=== PATIENT | female | born 1935 | race Caucasian/White ===

== ENCOUNTER 2021-01-12 12:18 | Emergency (ER) | payer MEDICARE ==
[2021-01-12] MEDS ORDERED: Boostrix 0.5 ML (Tdap) VIAL ONE (13:43)
[2021-01-12] MEDS ORDERED: Lidocaine 1% w/Epinephrine 1:100K 20 ML VIAL ONE (14:47)
[2021-01-12] MEDS ORDERED: Bacitracin 1 PK ONE (15:27)
== END 2021-01-12 16:16 | disposition home or self-care (01) ==
LOC: ERS 12:18
DX: S01.81XA Laceration without foreign body of other part of head, initial encounter (principal); Z79.899 Other long term (current) drug therapy; W22.8XXA Striking against or struck by other objects, initial encounter
CPT/HCPCS: 12013; 70450; 90471; 90715